=== PATIENT | female | born 1995 | race African-American/Black ===

== ENCOUNTER 2024-06-19 09:26 | Emergency (ER) | payer OTHER ==
[2024-06-19 09:56] VITALS: BP 126/74; PULSE 90; RESP 18; TEMP 98; BMI 28.3
[2024-06-19] MEDS ORDERED: LIDOCAINE 4% PATCH TP ONE (11:17)
[2024-06-19] MEDS ORDERED: ACETAMINOPHEN 500 MG TABLET (FP) ONE (11:17)
[2024-06-19] MEDS: LIDOCAINE 4% PATCH TP ONE (11:20)
[2024-06-19] MEDS: ACETAMINOPHEN 500 MG TABLET (FP) PO ONE (11:20)
[2024-06-19] MEDS ORDERED: LIDOCAINE PATCH REMOVAL MC SCH (22:00)
== END 2024-06-19 13:20 | disposition home or self-care (01) ==
LOC: JER 09:26
DX: M54.2 Cervicalgia (principal); R07.81 Pleurodynia; V43.62XA Car passenger injured in collision with other type car in traffic accident, initial encounter; Y92.410 Unspecified street and highway as the place of occurrence of the external cause
CPT/HCPCS: 71046-TC-FY; 71101-TC-RT-FY; 99284-25